=== PATIENT | female | born 1965 | race Caucasian/White ===

== ENCOUNTER 2016-10-28 21:06 | Inpatient (IN) | payer OTHER ==
[~2016-10-28] VITALS: Ht 165.6 cm; Wt 83.1 kg
[~2016-10-28 21:06] MED LIST: AMOXICILLIN875 MG PO; PROCHLORPERAZIN10 MG PO; TRAMADOL HCL50 MG PO; ZUPLENZ8 MG PO
[2016-10-28 22:12] LABS: HEMATOCRIT 31.5 % (36.0-46.0); MCH 26.8 PG (29.0-34.0); MCHC 33.3 G/DL (30.0-36.0); MCV 80.4 FL (83-99); PLATELET COUNT 422 K/uL (156-360); RBC DIS.WIDTH-CV 14.9 % (11.8-14.6); RBC DIS.WIDTH-SD 42.6 % (39-53); WHITE BLOOD COUNT 4.3 K/uL (4.1-10.2)
[2016-10-28 22:27] LABS: CHLORIDE 106 mEq/L (99-109); POTASSIUM 2.9 mEq/L (3.7-5.4); RED BLOOD COUNT 3.92 M/uL (3.80-5.20); SODIUM 139 mEq/L (136-147)
[2016-10-28 22:29] LABS: GLUCOSE 115 mg/dL (70-99)
[2016-10-28 22:31] LABS: ANION GAP 10 MEQ/L (2-14); TOTAL BILIRUBIN 0.1 mg/dL (0.0-1.0)
[2016-10-28 22:33] LABS: ALKALINE PHOSPHATASE 45 IU/L (3-129); GFR ESTIMATE (CALCULATED) > 59 mL/min/
[2016-10-28 22:34] LABS: UREA NITROGEN (BUN) 7 mg/dL (9-23)
[2016-10-28 22:36] LABS: LIPASE 70 U/L (1.0-51.0)
[2016-10-28 23:07] LABS: ADD MIUA? YES; BILIRUBIN NEGATIVE; BLOOD SMALL; COLOR STRAW ((YELLOW)); GLUCOSE (STRIP) NEGATIVE; KETONES NEGATIVE; LEUKOCYTES SMALL; NITRITE NEGATIVE; PROTEIN (STRIP) NEGATIVE; SPECIFIC GRAVITY 1.006 (1.000-1.030); UROBILINOGEN 0.2 MG/DL (0.2-1.0)
[2016-10-28 23:17] LABS: BACTERIA NONE SEEN /HPF; EPITHELIAL CELLS RARE /HPF; MUCUS TRACE /LPF; RED BLOOD CELLS 0-5 /HPF (0-5); UCUL ADDED? NO
[2016-10-29] MEDS ORDERED: TYLENOL WITH C1 EACH PO (00:26)
[2016-10-29] MEDS ORDERED: LORAZEPAM0.5 MG PO (00:27)
[2016-10-29] MEDS ORDERED: ZYPREXA5 MG PO (00:27)
[2016-10-29 05:10] VITALS: BP 138/80
[2016-10-29 08:07] LABS: HEMATOCRIT 30.8 % (36.0-46.0); MCH 27.3 PG (29.0-34.0); MCHC 33.1 G/DL (30.0-36.0); MCV 82.6 FL (83-99); PLATELET COUNT 407 K/uL (156-360); RBC DIS.WIDTH-CV 15.4 % (11.8-14.6); RBC DIS.WIDTH-SD 45.1 % (39-53); RED BLOOD COUNT 3.73 M/uL (3.80-5.20); WHITE BLOOD COUNT 3.2 K/uL (4.1-10.2)
[2016-10-29 08:30] VITALS: BP 114/69
[2016-10-29 08:32] LABS: ALKALINE PHOSPHATASE 39 IU/L (3-129); ANION GAP 8 MEQ/L (2-14); CHLORIDE 107 MEQ/L (99-109); GFR ESTIMATE (CALCULATED) > 59 mL/min/; GLUCOSE 114 mg/dL (70-99); SAMPLE HEMOLYSIS CHECK 0; SAMPLE ICTERIC CHECK 0; SAMPLE LIPEMIA CHECK 0; SODIUM 140 MEQ/L (136-147); TOTAL BILIRUBIN 0.2 MG/DL (0.0-1.0); UREA NITROGEN (BUN) 8 mg/dL (9-23)
[2016-10-29 08:42] LABS: POTASSIUM 3.9 MEQ/L (3.7-5.4)
[2016-10-29 12:20] VITALS: BP 124/71
[2016-10-29 16:00] VITALS: BP 139/71
[2016-10-29 23:18] VITALS: BP 132/66
[2016-10-30 05:58] LABS: HEMATOCRIT 30.7 % (36.0-46.0); MCH 26.5 PG (29.0-34.0); MCHC 32.9 G/DL (30.0-36.0); MCV 80.6 FL (83-99); MEAN PLAT.VOLUME 8.8 uM^3 (9.5-12.4); PLATELET COUNT 443 K/uL (156-360); RBC DIS.WIDTH-CV 15.1 % (11.8-14.6); RBC DIS.WIDTH-SD 43.9 % (39-53); RED BLOOD COUNT 3.81 M/uL (3.80-5.20); WHITE BLOOD COUNT 3.4 K/uL (4.1-10.2)
[2016-10-30 06:34] LABS: ANION GAP 10 MEQ/L (2-14); CHLORIDE 107 MEQ/L (99-109); GFR ESTIMATE (CALCULATED) > 59 mL/min/; MAGNESIUM 1.7 mg/dl (1.3-2.7); POTASSIUM 3.3 MEQ/L (3.7-5.4); SAMPLE HEMOLYSIS CHECK 0; SAMPLE ICTERIC CHECK 0; SAMPLE LIPEMIA CHECK 0; SODIUM 140 MEQ/L (136-147); UREA NITROGEN (BUN) 7 mg/dL (9-23)
[2016-10-30 06:37] LABS: GLUCOSE 83 mg/dL (70-99)
[2016-10-30 08:25] VITALS: BP 133/64
[2016-10-30 16:30] VITALS: BP 142/72
[2016-10-30 23:02] VITALS: BP 134/69
[2016-10-31 08:37] VITALS: BP 135/78
== END 2016-10-31 15:08 | disposition home or self-care (01) | DRG 375 ==
LOC: EME 21:06 → EDOF 10-29 03:02 → 2EAST 10-29 03:02
PROVIDERS: Internal Medicine; Physician Assistant
DX: C78.6 Secondary malignant neoplasm of retroperitoneum and peritoneum (principal); R18.8 Other ascites; K56.60 Unspecified intestinal obstruction; K80.20 Calculus of gallbladder without cholecystitis without obstruction; D50.9 Iron deficiency anemia, unspecified; E87.6 Hypokalemia; F41.9 Anxiety disorder, unspecified; J45.909 Unspecified asthma, uncomplicated; K42.9 Umbilical hernia without obstruction or gangrene; K43.9 Ventral hernia without obstruction or gangrene; K21.9 Gastro-esophageal reflux disease without esophagitis; Z85.038 Personal history of other malignant neoplasm of large intestine; Z91.040 Latex allergy status
CPT/HCPCS: 74177; 80048; 80053; 81003; 83605; 83690; 83735; 85027; 87493; 93005; 99281; 99285; J1170; J1644; J2270; J2405; J3480; J7030; S0028

== ENCOUNTER → 2017-04-20 | Outpatient (CLI) | payer OTHER ==
[~2017-04-20] MED LIST changes: +ACETAMINOPHEN-1 EAC3 PO; +BENADRYL50 MG PO; +LORAZEPAM0.5 MG PO; +TYLENOL WITH C1 EACH PO; +XARELTO20 MG PO; +ZYPREXA10 MG PO; +ZYPREXA5 MG PO
== END | disposition home or self-care (01) ==
LOC: AMB 12:30
DX: Z45.2 Encounter for adjustment and management of vascular access device (principal); I87.8 Other specified disorders of veins; Z92.21 Personal history of antineoplastic chemotherapy

== ENCOUNTER 2017-06-26 14:16 | Emergency (ER) | payer OTHER ==
[~2017-06-26] VITALS: Ht 165.1 cm; Wt 74.7 kg
[2017-06-26] MEDS ORDERED: XARELTO15 MG PO (15:56)
[2017-06-26 16:19] VITALS: BP 122/70
== END 2017-06-26 16:20 | disposition home or self-care (01) ==
LOC: EME 14:16
DX: I82.441 Acute embolism and thrombosis of right tibial vein (principal); K21.9 Gastro-esophageal reflux disease without esophagitis; J45.909 Unspecified asthma, uncomplicated; Z86.718 Personal history of other venous thrombosis and embolism; Z85.9 Personal history of malignant neoplasm, unspecified; Z90.10 Acquired absence of unspecified breast and nipple; Z88.1 Allergy status to other antibiotic agents; Z88.2 Allergy status to sulfonamides; Z88.8 Allergy status to other drugs, medicaments and biological substances
CPT/HCPCS: 93971; 99281; 99284